=== PATIENT | female | born 1955 | race Caucasian/White ===

== ENCOUNTER → 2016-09-05 | Outpatient (CLI) | payer BC ==
--- NOTE | 2016-09-05 10:35 | MA ---
Screening Digital Mammogram With iCAD Analysis Clinical Indications: Routine screening. Technique: Standard cephalocaudal projections are obtained. Digital breast tomosynthesis was performe d in the MLO projection with reconstruction at 1.0 mm slice thickness and composite MLO views reconst ructed. This examination is processed by the iCAD computer-aided detection system. Comparison: September 2015, August 2014, August 2013, July 2012, July 2011, July 2010, D ec2008. Breast Density: Type B; Scattered fibroglandular densities. Findings: CAD was reviewed. A nodular asymmetry in the anterior upper right breast is more conspicuou s. No suspicious microcalcifications are identified. Left breast is stable in appearance. Impression: Possible developing right breast asymmetry requires further evaluation, BI-RADS 0. Recommendation: Spot compression assessment of the right breast with ultrasound suggested if the abno rmality persists on diagnostic evaluation. [facility] will send a result letter to the patient.
== END ==
LOC: FIMAGING 07:38
DX: Z12.31 Encounter for screening mammogram for malignant neoplasm of breast (principal)
CPT/HCPCS: G0202

== ENCOUNTER → 2016-09-12 | Outpatient (CLI) | payer BC ==
--- NOTE | 2016-09-12 14:05 | MA ---
Diagnostic Digital Mammogram Right Breast With iCAD Analysis Reason for examination: Evaluate possible developing asymmetry in the upper outer right breast noted on the screening tomographic study September 05, 2016. Technique: Oblique and craniocaudal spot compression views are obtained. Also, a true lateral is perf ormed. The examination is processed by the iCAD computer-aided detection system. Findings: Mild asymmetry persists in the upper outer breast. No suspicious calcifications are identif ied.. Impression: Persistent asymmetry requires further evaluation, BI-RADS 0. Recommendation: Targeted right breast ultrasound which will be subsequently performed today. A verbal report was given to the patient. [facility] with send a result letter.
--- NOTE | 2016-09-12 14:32 | US ---
Right Breast Ultrasound History: Evaluate subtle persistent asymmetry in the upper-outer right breast identified on screening study performed earlier today. Technique: Longitudinal and transverse images were obtained utilizing a 15 MHz transducer. Findings: Scattered fibroglandular elements are noted in the upper-outer right breast. No discrete so lid mass is identified and no cyst is seen. Impression: Probably benign findings when considering mammographic and sonographic assessment, BI-RAD S 3. Recommendation: Six-month unilateral right mammographic follow up. Findings and follow-up recommendations were reviewed with the patient in detail. . [facility] will send a result letter to the patient.
== END ==
LOC: FIMAGING 12:55
PROVIDERS: ATTEND Physician Assistant
DX: Z12.39 Encounter for other screening for malignant neoplasm of breast (principal); R92.2 Inconclusive mammogram
CPT/HCPCS: G0206

== ENCOUNTER → 2016-10-28 | Outpatient (CLI) | payer BC ==
[~2016-10-28] MED LIST: IOPAMIDOL (ISOVUE-300) 100 ML BTL IV ONE
== END ==
LOC: FIMAGING 08:52
DX: Z08 Encounter for follow-up examination after completed treatment for malignant neoplasm (principal); D37.3 Neoplasm of uncertain behavior of appendix; K76.89 Other specified diseases of liver; R91.8 Other nonspecific abnormal finding of lung field
CPT/HCPCS: Q9967

== ENCOUNTER → 2017-01-03 | Outpatient (CLI) | payer BC | LOC: FIMAGING 08:04 | PROVIDERS: ATTEND Physician Assistant | DX: M51.84 Other intervertebral disc disorders, thoracic region (principal) ==

== ENCOUNTER → 2017-03-06 | Outpatient (CLI) | payer BC ==
[~2017-03-06] MED LIST changes: -IOPAMIDOL (ISOVUE-300) 100 ML BTL IV ONE; +IOPAMIDOL (ISOVUE-300) 100 ML BTL ONE
== END ==
LOC: FIMAGING 14:00
DX: R92.8 Other abnormal and inconclusive findings on diagnostic imaging of breast (principal); D37.3 Neoplasm of uncertain behavior of appendix; Z90.711 Acquired absence of uterus with remaining cervical stump
CPT/HCPCS: G0206; Q9967

== ENCOUNTER → 2017-08-21 | Outpatient (CLI) | payer BC | LOC: FIMAGING 07:48 | DX: Z85.038 Personal history of other malignant neoplasm of large intestine (principal) | CPT/HCPCS: Q9967 ==

== ENCOUNTER → 2017-09-08 | Outpatient (CLI) | payer BC | LOC: FIMAGING 16:06 | PROVIDERS: ATTEND Physician Assistant | DX: Z12.31 Encounter for screening mammogram for malignant neoplasm of breast (principal) ==

== ENCOUNTER → 2017-09-23 | Outpatient (CLI) | payer BC | LOC: FIMAGING 18:30 | DX: M51.36 Other intervertebral disc degeneration, lumbar region (principal); M48.061 Spinal stenosis, lumbar region without neurogenic claudication; M12.88 Other specific arthropathies, not elsewhere classified, other specified site ==

== ENCOUNTER 2017-10-09 13:56 | Day surgery (SDC) | payer BC ==
[2017-10-09] MEDS ORDERED: IOPAMIDOL (ISOVUE-M 300) 15 ML VIAL ONE (15:48)
[2017-10-09] MEDS ORDERED: TRIAMCINOLONE ACETONIDE 200 MG/5 ML MDV IM ONE (15:48)
== END 2017-10-09 16:05 | disposition home or self-care (01) ==
LOC: FIMAGING 13:56
PROVIDERS: ATTEND Radiology Diagnostic Radiology
PROC: 3E0S3BZ Introduction of Anesthetic Agent into Epidural Space, Percutaneous Approach (ICD-10-PCS; principal; 2017-10-09)
PROC: 3E0S33Z Introduction of Anti-inflammatory into Epidural Space, Percutaneous Approach (ICD-10-PCS; principal; 2017-10-09)
DX: M51.16 Intervertebral disc disorders with radiculopathy, lumbar region (principal)
CPT/HCPCS: J3301; Q9967

== ENCOUNTER → 2018-02-01 | Outpatient (CLI) | payer BC | LOC: FIMAGING 07:34 | DX: R19.07 Generalized intra-abdominal and pelvic swelling, mass and lump (principal); K76.89 Other specified diseases of liver; D37.3 Neoplasm of uncertain behavior of appendix; Z90.710 Acquired absence of both cervix and uterus | CPT/HCPCS: Q9967 ==

== ENCOUNTER → 2018-09-09 | Outpatient (CLI) | payer BC | LOC: FIMAGING 15:53 | PROVIDERS: ATTEND Physician Assistant | DX: Z12.31 Encounter for screening mammogram for malignant neoplasm of breast (principal) ==